=== PATIENT | male | born 1990 | race African-American/Black ===

== ENCOUNTER 2021-12-13 14:35 | Emergency (ER) | payer OTHER ==
[~2021-12-13] VITALS: Ht 167.6 cm; Wt 106.8 kg
[2021-12-13] MEDS ORDERED: KETOROLAC TROMETHAMINE 10 MG TAB PO ONE (15:45)
[2021-12-13] MEDS ORDERED: VENTAER INH (16:38)
[2021-12-13 16:53] VITALS: BP 130/61
== END 2021-12-13 16:55 | disposition home or self-care (01) ==
LOC: M ED 14:35
DX: J06.9 Acute upper respiratory infection, unspecified (principal); F17.200 Nicotine dependence, unspecified, uncomplicated